=== PATIENT | female | born 1985 | race African-American/Black ===

== ENCOUNTER → 2017-06-28 | Outpatient (CLI) | payer OTHER ==
[~2017-06-28] MED LIST: ALBUTEROL17 GM INH; BENZONATATE PO; MULTI VITAMIN1 EACH PO; NAPROSYN500 MG PO; NO MEDICATIONS; VOLTAREN75 MG PO
--- NOTE | ~2017-06-28 | CR181 ---
[facility]. [facility] A Service of [facility] & [facility] RADIOLOGY TEXT RESULTS PATIENT: KINGSLEY QUILES LOCATION: [place] : [birth year] UNIT #: [id number] AGE: [address]: Jacob Singh MD SEX: F ORDER DR: [id number] [place] [id number] O MR#: [id number] Acc #: [id number] NAME: KINGSLEY QUILES : 1985 SEX: F STUDY DATE/TIME: 06/28/2017 15:28 UNIT: [facility] ROOM: STUDY DESCRIPTION: CR Lumbar Spine 2 or 3 Views Attending Physician: Jacob Singh M.D. Referring Physician: Jacob Singh M.D. Ordering Physician: Jacob Singh M.D. Primary Care Physician: Jacob Singh M.D. MEDICAL IMAGING REPORT This report is preliminary unless electronic signature is present. EXAM Lumbar spine, 3 views; 06/28/2017. HISTORY Low back pain, status post fall hitting a table 3 nights ago. FINDINGS AP and lateral projections of the lumbar segment show good mineralization of both anterior and posterior elements. They are all anatomically normal without indication of fracture, dislocation, or malignant change of a sclerotic or lytic type. There is no congenital defect noted. The sacroiliac joints are normal. IMPRESSION Normal lumbar spine. Dictated by... Dany Velazco M.D. THIS IS AN ELECTRONICALLY VERIFIED REPORT Dany Velazco M.D. at 07/01/2017 7:22 AM STACEY/hunter TD: 06/29/2017 00:15 JOB #: [id number] MEDICAL IMAGING REPORT Page 1 of 1
--- NOTE | ~2017-06-28 | CR206 ---
[facility]. [facility] A Service of [facility] & [facility] RADIOLOGY TEXT RESULTS PATIENT: KINGSLEY QUILES LOCATION: [place] : [birth year] UNIT #: [id number] AGE: [address]: Jacob Singh MD SEX: F ORDER DR: [id number] [place] [id number] O MR#: [id number] Acc #: [id number] NAME: KINGSLEY QUILES : 1985 SEX: F STUDY DATE/TIME: 06/28/2017 15:28 UNIT: [facility] ROOM: STUDY DESCRIPTION: CR Pelvis 1 or 2 Views Attending Physician: Jacob Singh M.D. Referring Physician: Jacob Singh M.D. Ordering Physician: Jacob Singh M.D. Primary Care Physician: Jacob Singh M.D. MEDICAL IMAGING REPORT This report is preliminary unless electronic signature is present. EXAM AP pelvis, 06/28/2017. HISTORY Pelvic pain and low back pain, status post fall 3 days ago, hitting a table. FINDINGS AP, supine examination of the pelvis shows satisfactory mineralization of the bony pelvis. The sacroiliac joints are normal. There is no indication of congenital defect, fracture, or dislocation at the articular anatomy of the sacral segments or of the hip joints. No malignant, lytic, or blastic change is present. IMPRESSION Normal pelvis. Dictated by... Dany Velazco M.D. THIS IS AN ELECTRONICALLY VERIFIED REPORT Dany Velazco M.D. at 07/01/2017 7:22 AM STACEY/hunter TD: 06/29/2017 00:19 JOB #: [id number] MEDICAL IMAGING REPORT Page 1 of 1
== END | disposition home or self-care (01) ==
LOC: SRAD 15:13
DX: M54.5 Low back pain (principal); M53.3 Sacrococcygeal disorders, not elsewhere classified
CPT/HCPCS: 72100; 72170